=== PATIENT | male | born 1990 | race Caucasian/White ===

== ENCOUNTER 2018-12-05 19:19 | Emergency (ER) | payer OTHER ==
[~2018-12-05] VITALS: Ht 182.9 cm; Wt 87.0 kg
[~2018-12-05 19:19] MED LIST: HYDR-3498 PO
[2018-12-05 19:31] VITALS: Ht 182.9 cm; Wt 87.0 kg
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
[2018-12-05] MEDS ORDERED: HYDROCODONE/APAP (10/325) TAB PO ONE (21:00)
[2018-12-05] MEDS ORDERED: IBUP800T48 PO (23:21)
[2018-12-05 23:30] VITALS: BP 120/65; PULSE 80; RESP 18
== END 2018-12-05 23:49 ==
LOC: FTE 19:19 → E/R 23:49
DX: S62.512A Displaced fracture of proximal phalanx of left thumb, initial encounter for closed fracture (principal); S62.351A Nondisplaced fracture of shaft of second metacarpal bone, left hand, initial encounter for closed fracture; Y08.89XA Assault by other specified means, initial encounter
CPT/HCPCS: 29125; 73110; 73130; Z7502; Z7610